=== PATIENT | female | born 1945 | race Caucasian/White ===

== ENCOUNTER 2024-01-07 11:51 | Observation (INO) ==
[2024-01-07] MEDS: Morphine 2 MG/ML SYRINGE IV ONE ×2 (16:32→20:10)
[2024-01-07] MEDS: Ondansetron 4 mg VIAL 2 MG/ML 2 ml VIAL IV ONE (17:50)
[2024-01-07 18:09] LABS: INR 1.04 (0.85-1.14)
[2024-01-07 18:27] LABS: Albumin 4.3 g/dL (3.2-5.2); Albumin/Globulin Ratio 1.5 (1-3); C Reactive Protein 5.8 mg/L (<8.01); Calcium 9.6 mg/dL (8.6-10.3); Creatinine, Serum 0.98 mg/dL (0.51-0.95); Globulin 2.9 g/dL (2-4); Potassium 4.2 mmol/L (3.5-5.0); Total Bilirubin 0.8 mg/dL (0.2-1.0); Total Protein 7.2 g/dL (6.4-8.9); eGFR CKD-EPI 59.8 (>60)
[2024-01-07 18:45] LABS: ABS Basophils 0.1 10^3/uL (0.0-0.1); ABS Eosinophils 0.1 10^3/uL (0.0-0.5); ABS Lymphocytes 1.2 10^3/uL (1.0-4.8); ABS Monocytes 0.6 10^3/uL (0.0-0.9); ABS Neutrophils 10.8 10^3/uL (1.5-7.6); Eosinophil % 0.4 %; Hematocrit 38.1 % (35-45); Hemoglobin 12.9 g/dL (11.5-14.3); Lymphocyte % 9.5 %; Mean Corpuscular Hemoglobin 30.9 pg (27-33); Mean Corpuscular Volume 90.7 fL (80-97); Mean Platelet Volume 7.9 fL (7.5-11.2); Platelet Count 299 10^3/uL (150-450); Red Blood Count 4.19 10^6/uL (3.63-4.92); Red Cell Distribution Width 13.3 % (12-17); White Blood Count 12.9 10^3/uL (3.8-11.8)
[2024-01-07] MEDS ORDERED: OCTREOTIDE 20 MG IM SCH (20:00)
[2024-01-07] MEDS: Prochlorperazine 5 mg/ml 2 ml VIAL (10 mg) IV ONE (20:08)
[2024-01-07] MEDS ORDERED: Ondansetron 4 mg VIAL 2 MG/ML 2 ml VIAL IV PRN (21:58)
[2024-01-08] MEDS: Morphine 2 MG/ML SYRINGE IV PRN (01:00)
[2024-01-08 06:46] LABS: ABS Basophils 0.1 10^3/uL (0.0-0.1); ABS Eosinophils 0.1 10^3/uL (0.0-0.5); ABS Lymphocytes 1.6 10^3/uL (1.0-4.8); ABS Monocytes 0.8 10^3/uL (0.0-0.9); ABS Neutrophils 6.5 10^3/uL (1.5-7.6); Eosinophil % 1.2 %; Hematocrit 36.8 % (35-45); Hemoglobin 12.5 g/dL (11.5-14.3); Lymphocyte % 17.1 %; Mean Corpuscular Hemoglobin 30.8 pg (27-33); Mean Corpuscular Volume 90.5 fL (80-97); Mean Platelet Volume 7.5 fL (7.5-11.2); Platelet Count 277 10^3/uL (150-450); Red Blood Count 4.07 10^6/uL (3.63-4.92); Red Cell Distribution Width 13.1 % (12-17); White Blood Count 9.1 10^3/uL (3.8-11.8)
[2024-01-08] MEDS ORDERED: Senna TAB 8.6 mg TAB PO PRN (10:01)
[2024-01-08] MEDS ORDERED: Polyethylene Glycol 3350 17 GM PACKET PO PRN (10:01)
[2024-01-08] MEDS ORDERED: Morphine 2 MG/ML SYRINGE IV PRN (10:01)
[2024-01-08] MEDS: Heparin 5000 UNITS/ML 1 mL VIAL SUBCUT SCH (21:30)
[2024-01-09 05:55] LABS: ABS Basophils 0.1 10^3/uL (0.0-0.1); ABS Eosinophils 0.1 10^3/uL (0.0-0.5); ABS Lymphocytes 1.2 10^3/uL (1.0-4.8); ABS Monocytes 0.8 10^3/uL (0.0-0.9); ABS Neutrophils 7.6 10^3/uL (1.5-7.6); Eosinophil % 1.2 %; Hematocrit 38.9 % (35-45); Hemoglobin 13.1 g/dL (11.5-14.3); Lymphocyte % 12.6 %; Mean Corpuscular Hemoglobin 30.6 pg (27-33); Mean Corpuscular Hgb Conc 33.6 g/dL (31-36); Mean Corpuscular Volume 91.1 fL (80-97); Mean Platelet Volume 7.8 fL (7.5-11.2); Platelet Count 274 10^3/uL (150-450); Red Blood Count 4.27 10^6/uL (3.63-4.92); Red Cell Distribution Width 13.1 % (12-17); White Blood Count 9.9 10^3/uL (3.8-11.8)
[2024-01-09 06:03] LABS: Calcium 9.1 mg/dL (8.6-10.3); Creatinine, Serum 0.98 mg/dL (0.51-0.95); Potassium 4.1 mmol/L (3.5-5.0); eGFR CKD-EPI 59.8 (>60)
[2024-01-09] MEDS: Acetaminophen IV 1 GM/100ML 1,000 MG/100 ML BAG IV SCH (18:17)
[2024-01-10] MEDS ORDERED: PEG 3000 GI LAVAGE 1 GALLON PO ONE (12:00)
[2024-01-10 13:28] VITALS: BP 107/56
== END 2024-01-10 16:30 | disposition home health service (06) ==
LOC: EDHOLD 11:51 → ED 11:51 → MED 23:27
PROVIDERS: ADMIT Internal Medicine; ATTEND Internal Medicine